=== PATIENT | female | born 1985 | race African-American/Black ===

== ENCOUNTER 2016-07-29 07:29 | Emergency (ER) | payer SELFPAY ==
[~2016-07-29] VITALS: Ht 152.4 cm; Wt 68.0 kg
[2016-07-29 07:34] VITALS: BP 124/67
== END 2016-07-29 07:57 | disposition home or self-care (01) ==
LOC: ER 07:31
DX: S13.4XXA Sprain of ligaments of cervical spine, initial encounter (principal); V29.9XXA Motorcycle rider (driver) (passenger) injured in unspecified traffic accident, initial encounter; Y93.89 Activity, other specified; Y92.89 Other specified places as the place of occurrence of the external cause; Y99.9 Unspecified external cause status
CPT/HCPCS: 99282; A4606; Z7610

== ENCOUNTER → 2016-10-08 | Emergency (ER) | payer SELFPAY ==
[~2016-10-08] VITALS: Ht 147.3 cm; Wt 66.7 kg
[2016-10-08 08:58] VITALS: BP 111/62
== END | disposition home or self-care (01) ==
LOC: ER 11:22
DX: F41.9 Anxiety disorder, unspecified (principal)
CPT/HCPCS: 99284; A4606; Z7610

== ENCOUNTER 2017-09-22 11:45 | Emergency (ER) | payer OTHER ==
[~2017-09-22] VITALS: Ht 149.9 cm; Wt 74.8 kg
[2017-09-22 12:01] VITALS: BP 135/83
== END 2017-09-22 13:18 | disposition home or self-care (01) ==
LOC: ER 11:46
DX: S06.0X0A Concussion without loss of consciousness, initial encounter (principal); S39.92XA Unspecified injury of lower back, initial encounter; V43.52XA Car driver injured in collision with other type car in traffic accident, initial encounter; Y93.89 Activity, other specified; Y92.89 Other specified places as the place of occurrence of the external cause; Y99.8 Other external cause status
CPT/HCPCS: 99283; A4606; Z7610